=== PATIENT | female | born 1960 | race Caucasian/White ===

== ENCOUNTER 2022-08-11 13:01 | Outpatient (CLI) | payer OTHER | END 2022-08-11 13:18 | disposition home or self-care (01) | LOC: MAMO-SONO 13:01 | DX: Z12.31 Encounter for screening mammogram for malignant neoplasm of breast (principal); D17.1 Benign lipomatous neoplasm of skin and subcutaneous tissue of trunk ==

== ENCOUNTER 2022-09-23 05:35 | Day surgery (SDC) | payer OTHER ==
[~2022-09-23] VITALS: Ht 160 cm; Wt 66.7 kg
== END 2022-09-23 13:05 | disposition home or self-care (01) ==
LOC: CIR.AMB 05:35
PROVIDERS: ATTEND Specialist
DX: D17.1 Benign lipomatous neoplasm of skin and subcutaneous tissue of trunk (principal); Z20.822 Contact with and (suspected) exposure to COVID-19; Z86.16 Personal history of COVID-19